=== PATIENT | female | born 1990 | race African-American/Black ===

== ENCOUNTER 2018-11-14 06:11 | Emergency (ER) | payer MEDICAID ==
[~2018-11-14] VITALS: Ht 157.5 cm; Wt 62.4 kg
[2018-11-14 06:21] VITALS: BP 113/71
== END 2018-11-14 09:18 | disposition left against medical advice (07) ==
LOC: ER 06:11
DX: R07.9 Chest pain, unspecified (principal); Z53.21 Procedure and treatment not carried out due to patient leaving prior to being seen by health care provider
CPT/HCPCS: 93005

== ENCOUNTER 2019-06-16 18:52 | Emergency (ER) | payer MEDICAID ==
[~2019-06-16] VITALS: Ht 167.6 cm; Wt 65.0 kg
[2019-06-16] MEDS ORDERED: SULFAMETHOXAZOLE/TRIMETHOPRIM 800/160MG TABLET PO ONE (21:15)
[2019-06-16] MEDS ORDERED: LEVOFLOXACIN 500MG PREMIX 100 ML IV ONE (21:15)
[2019-06-16] MEDS ORDERED: HYDROCODONE/ACETAMINOPHEN 5/325MG TABLET PO ONE (21:15)
[2019-06-16] MEDS ORDERED: TETANUS, DIPHTHERIA, PERTUSSIS VAC/PF 0.5ML (>7YR OLD) IM ONE (21:30)
[2019-06-16 21:37] LABS: CHLORIDE 105 mEq/L (98-107)
[2019-06-16 21:40] LABS: BASOPHILS % 0.6 % (0.0-2.0); EOSINOPHILS % 1.5 % (0.0-5.0); HEMATOCRIT. 47.2 % (36.0-48.0); HEMOGLOBIN. 15.2 g/dL (12.0-16.0); LYMPHOCYTES % 50.6 % (20.0-50.0); MEAN CORPUSCULAR HEMOGLOBIN 26.6 pg (28.0-32.0); MEAN CORPUSCULAR VOLUME 82.4 fL (81.0-99.0); MEAN PLATELET VOLUME 9.2 fl (7.4-10.4); MONOCYTES % 11.5 % (2.0-8.0); NEUTROPHILS % 35.8 % (40.0-76.0); PLATELET 273 x1000/uL (130-400); RED BLOOD CELL COUNT 5.73 mill/uL (4.2-5.4); RED CELL DISTRIBUTION WIDTH 13.8 % (11.6-14.6)
[2019-06-16] MEDS ORDERED: BACITRACIN ZINC OINT UDPKT TOP ONE (21:45)
[2019-06-17 00:06] VITALS: BP 101/66
== END 2019-06-17 00:09 | disposition home or self-care (01) ==
LOC: ER 18:52
DX: M79.604 Pain in right leg (principal); T79.7XXA Traumatic subcutaneous emphysema, initial encounter; T14.8XXA Other injury of unspecified body region, initial encounter; W34.00XA Accidental discharge from unspecified firearms or gun, initial encounter; Y93.89 Activity, other specified; Y92.89 Other specified places as the place of occurrence of the external cause; Y99.8 Other external cause status
CPT/HCPCS: 36415; 73560; 73590; 80053; 85025; 90471; 90715; 96365; 99284; J1956

== ENCOUNTER 2019-06-26 14:07 | Emergency (ER) | payer MEDICAID | END 2019-06-26 15:07 | disposition left against medical advice (07) | LOC: ER 14:07 | DX: R68.89 Other general symptoms and signs (principal); Z53.21 Procedure and treatment not carried out due to patient leaving prior to being seen by health care provider ==

== ENCOUNTER 2019-08-02 06:29 | Emergency (ER) | payer MEDICAID ==
[~2019-08-02] VITALS: Ht 160 cm; Wt 75.0 kg
[2019-08-02] MEDS ORDERED: KETOROLAC 60MG/2ML VIAL IM ONE (07:30)
[2019-08-02 07:34] VITALS: BP 131/69
== END 2019-08-02 08:35 | disposition home or self-care (01) ==
LOC: ER 06:29
DX: M25.561 Pain in right knee (principal); Z87.828 Personal history of other (healed) physical injury and trauma
CPT/HCPCS: 81025; 96372; 99283; J1885

== ENCOUNTER 2020-05-31 01:48 | Inpatient (IN) | payer MEDICAID ==
[~2020-05-31] VITALS: Ht 154.9 cm; Wt 59.0 kg
[2020-05-31] MEDS ORDERED: ACETAMINOPHEN 325MG TABLET PO ONE (09:45)
[2020-05-31] MEDS ORDERED: MORPHINE SULFATE 4 MG/ML CPJ (NOT FOR IM USE) IV STA (09:55)
[2020-05-31] MEDS ORDERED: ONDANSETRON HCL 4MG/2ML INJ IV STA (09:55)
[2020-05-31] MEDS ORDERED: DOXYCYCLINE 100 MG in DEXT 5% WATER 100 ML IV STA (09:55)
[2020-05-31] MEDS ORDERED: CEFTRIAXONE 1 G PREMIX 50 ML IV ONE (10:00)
[2020-05-31 11:17] LABS: BASOPHILS % 0.2 % (0.0-2.0); EOSINOPHILS % 0.1 % (0.0-5.0); HEMOGLOBIN. 12.2 g/dL (12.0-16.0); LYMPHOCYTES % 12.8 % (20.0-50.0); MEAN CORPUSCULAR HEMOGLOBIN 25.9 pg (28.0-32.0); MEAN PLATELET VOLUME 8.7 fl (7.4-10.4); MONOCYTES % 4.6 % (2.0-8.0); NEUTROPHILS % 82.3 % (40.0-76.0); PLATELET 233 x1000/uL (130-400); RED BLOOD CELL COUNT 4.69 mill/uL (4.2-5.4); RED CELL DISTRIBUTION WIDTH 13.6 % (11.6-14.6)
[2020-05-31 11:23] LABS: CHLORIDE 100 mEq/L (98-107)
[2020-05-31 11:29] LABS: HCG SCREEN NEGATIVE
[2020-05-31] MEDS ORDERED: CEFTRIAXONE 1,000 MG in DEXTROSE 5% WATER 50 ML IV ONE (12:30)
[2020-05-31] MEDS ORDERED: METRONIDAZOLE 500 MG PREMIX 100 ML IV ONE (12:30)
[2020-05-31] MEDS ORDERED: NA PHOS,M-B/NA PHOS,DI-BA ENEMA 118ML PR PRN (15:00)
[2020-05-31] MEDS ORDERED: CLONIDINE 0.1MG TABLET PO PRN (15:00)
[2020-05-31] MEDS ORDERED: ONDANSETRON HCL 4MG/2ML INJ IV PRN (15:00)
[2020-05-31] MEDS ORDERED: MAGNESIUM/ALUMINUM HYDROXIDE/SIMETHICONE 30ML UDC PO PRN (15:00)
[2020-05-31] MEDS ORDERED: ACETAMINOPHEN 650MG SUPP PR PRN ×2 (15:00)
[2020-05-31] MEDS ORDERED: HYDROCODONE/ACETAMINOPHEN 5/325MG TABLET PO PRN (15:00)
[2020-05-31] MEDS ORDERED: DOCUSATE SODIUM 100MG CAPSULE PO PRN (15:00)
[2020-05-31] MEDS ORDERED: GUAIFENESIN 200MG/10ML SUGAR FREE UDC PO PRN (15:00)
[2020-05-31] MEDS ORDERED: ACETAMINOPHEN 650MG/20.3ML UDC GT PRN (15:00)
[2020-05-31 18:00] VITALS: BP 102/61
[2020-05-31] MEDS ORDERED: ENOXAPARIN 40MG/0.4ML SYR SUBCUT SCH (18:00)
[2020-05-31] MEDS ORDERED: CEFOXITIN SODIUM 1 G in DEXTROSE 5% WATER 50 ML IV SCH (18:30)
[2020-05-31 18:52] VITALS: BP 114/78
[2020-05-31 20:00] VITALS: BP 114/78
[2020-05-31] MEDS ORDERED: METRONIDAZOLE 500MG TABLET PO SCH (20:30)
[2020-05-31] MEDS ORDERED: DOXYCYCLINE 100 MG in DEXT 5% WATER 100 ML IV SCH (21:00)
[2020-05-31] MEDS: DOXYCYCLINE 100 MG in DEXT 5% WATER 100 ML IV SCH (23:50)
[2020-06-01] VITALS: BP 107/99
[2020-06-01] MEDS: AMPICILLIN/SULBACTAM 3G in SODIUM CHLORIDE 0.9% 100ML IV SCH ×2 (02:27→09:05)
[2020-06-01 04:00] VITALS: BP 104/60
[2020-06-01 06:18] LABS: BASOPHILS % 0.1 % (0.0-2.0); EOSINOPHILS % 0.4 % (0.0-5.0); HEMATOCRIT. 37.9 % (36.0-48.0); HEMOGLOBIN. 12.5 g/dL (12.0-16.0); LYMPHOCYTES % 20.9 % (20.0-50.0); MEAN CORPUSCULAR HEMOGLOBIN 26.2 pg (28.0-32.0); MEAN CORPUSCULAR VOLUME 79.4 fL (81.0-99.0); MONOCYTES % 6.7 % (2.0-8.0); NEUTROPHILS % 71.9 % (40.0-76.0); PLATELET 225 x1000/uL (130-400); RED BLOOD CELL COUNT 4.77 mill/uL (4.2-5.4); RED CELL DISTRIBUTION WIDTH 14.3 % (11.6-14.6)
[2020-06-01 06:32] LABS: CHLORIDE 100 mEq/L (98-107)
[2020-06-01 06:52] LABS: HDL CHOLESTEROL 23 mg/dL (40-59); LDL CHOLESTEROL 90 mg/dL (5-100)
[2020-06-01 08:00] VITALS: BP 111/69
[2020-06-01] MEDS: DOXYCYCLINE 100 MG in DEXT 5% WATER 100 ML IV SCH (09:05)
[2020-06-01] MEDS ORDERED: METR500T MT (10:20)
[2020-06-01 12:00] VITALS: BP 100/50
[2020-06-01 13:34] VITALS: BP 100/50
[2020-06-03 04:07] LABS: NEISSERIA GONORRHOEAE NAA Positive (Negative)
[2020-06-04 04:07] LABS: OVA & PARASITE EXAM Final report (.)
== END 2020-06-01 14:05 | disposition home or self-care (01) | DRG 724 ==
LOC: ER 03:10 → 6EST 14:27 → ENRESERV 17:06
PROVIDERS: ADMIT Family Medicine; ATTEND Family Medicine
DX: A59.9 Trichomoniasis, unspecified (principal); N73.9 Female pelvic inflammatory disease, unspecified; F17.210 Nicotine dependence, cigarettes, uncomplicated; D72.829 Elevated white blood cell count, unspecified; R19.7 Diarrhea, unspecified; E66.9 Obesity, unspecified; E44.1 Mild protein-calorie malnutrition; Z68.24 Body mass index [BMI] 24.0-24.9, adult
CPT/HCPCS: 36415; 71045; 74176; 76830; 76856; 80053; 80061; 80305; 83605; 84145; 84703; 85025; 87045; 87177; 87209; 87210; 87449; 87491; 87493; 87591; 89055; 93005; 99285; J0295; J0694; J0696; J1650; J3490; J7050; J7060

== ENCOUNTER 2020-12-01 11:46 | Emergency (ER) | payer MEDICAID ==
[~2020-12-01] VITALS: Ht 165.1 cm; Wt 70.0 kg
[~2020-12-01 11:46] MED LIST: METR500T MT
[2020-12-01] MEDS ORDERED: MORPHINE SULFATE 10 MG/ML CPJ IM ONE (12:15)
[2020-12-01 13:37] VITALS: BP 95/67
[2020-12-01] MEDS ORDERED: CEFAZOLIN 1000MG PREMIX 50 ML IV ONE (15:30)
[2020-12-01 16:13] LABS: CHLORIDE 92 mEq/L (98-107)
[2020-12-01 16:18] LABS: HCG SCREEN NEGATIVE
[2020-12-01 16:19] LABS: ETHANOL BLOOD < 10 mg/dL
[2020-12-01] MEDS ORDERED: T3 PO (16:24)
[2020-12-01] MEDS ORDERED: P50 MT (16:26)
[2020-12-01] MEDS ORDERED: CEPH500T MT (16:26)
[2020-12-01] MEDS ORDERED: PREDNISONE 20MG TABLET PO ONE (16:30)
== END 2020-12-01 17:30 | disposition home or self-care (01) ==
LOC: ER 11:46
DX: S00.83XA Contusion of other part of head, initial encounter (principal); S00.12XA Contusion of left eyelid and periocular area, initial encounter; S00.11XA Contusion of right eyelid and periocular area, initial encounter; S60.221A Contusion of right hand, initial encounter; Z79.899 Other long term (current) drug therapy; Y04.0XXA Assault by unarmed brawl or fight, initial encounter; Y93.89 Activity, other specified; Y92.89 Other specified places as the place of occurrence of the external cause; Y99.8 Other external cause status
CPT/HCPCS: 36415; 70450; 70486; 73090; 73110; 80053; 80320; 84703; 96365; 96372; 99285; J0690; J2270; J7512; G0480